=== PATIENT | female | born 1940 ===

== ENCOUNTER 2020-09-28 21:31 | Inpatient (IN) | payer MEDICARE, BC ==
[~2020-09-28] VITALS: Ht 172.7 cm; Wt 64.4 kg
--- NOTE | 2020-09-28 22:00 | NUR ---
Patient presents to ER via EMS for Medical Clearance from [facility]. Patient is able to answer questions is aware of what is going on. No cardiovascular issues at this time - HR normal - sinus rhythm. Lung sounds clear. No acute distress.
[2020-09-28] MEDS ORDERED: MELA1TAB27 PO (22:09)
[2020-09-28] MEDS ORDERED: AMLO-212 PO (22:09)
[2020-09-28] MEDS ORDERED: ESCI5TAB16 PO (22:09)
[2020-09-28] MEDS ORDERED: LEVO100T10 PO (22:09)
[2020-09-28] MEDS ORDERED: ASPI-869 PO (22:09)
[2020-09-28] MEDS ORDERED: BUSP5TAB3 PO (22:09)
[2020-09-28 22:35] LABS: BASOPHILS % (AUTO) 0.6 % (0.0-2.0); EOSINOPHILS # (AUTO) 0.2 K/uL (0.0-0.7); EOSINOPHILS % (AUTO) 2.5 % (0.0-7.0); HEMATOCRIT 38.5 % (31.2-41.9); HEMOGLOBIN 13.2 g/dL (10.9-14.3); LYMPHOCYTES % (AUTO) 23.9 % (20.5-51.5); MEAN CORPUSCULAR HEMOGLOBIN 29.8 uug (24.7-32.8); MEAN CORPUSCULAR HGB CONC 34 g/dL (32.3-35.6); MONOCYTES # (AUTO) 0.9 K/uL (2.0-10.0); MONOCYTES % (AUTO) 10.5 % (0.0-11.0); NEUTROPHILS # (AUTO) 5.2 K/uL (1.8-8.9); NEUTROPHILS % (AUTO) 62.5 % (38.5-71.5); PLATELET COUNT (AUTO) 324 K/uL (179-408); RED BLOOD CELL COUNT(AUTO) 4.42 MIL/uL (3.63-4.92); WHITE BLOOD COUNT (AUTO) 8.3 K/uL (3.8-11.8)
[2020-09-28 22:39] LABS: ALANINE AMINOTRANSFERASE 39 U/L (14-59); ALKALINE PHOSPHATASE 89 U/L (50-136); ASPARTATE AMINOTRANSFERASE 27 U/L (15-37); BILIRUBIN,DIRECT 0.1 mg/dL (0.0-0.2); BILIRUBIN,TOTAL 0.5 mg/dL (0.2-1.0); CARBON DIOXIDE 26 mmol/L (21-32); CHLORIDE 99 mmol/L (98-107); CREATININE 0.8 mg/dL (0.6-1.3); GLUCOSE 93 mg/dL (74-106); POTASSIUM 3.6 mmol/L (3.5-5.1); TOTAL PROTEIN, SERUM 6.3 g/dL (6.4-8.2); UREA NITROGEN, BLOOD 19 mg/dL (7-18)
[2020-09-28 22:47] LABS: THYROID STIMULATING HORMONE 6.891 mIU/mL (0.358-3.740)
[2020-09-28 22:48] LABS: *BILIRUBIN,URIN NEGATIVE (NEGATIVE); *CLARITY,URINE CLEAR (CLEAR); *COLOR,URINE YELLOW (YELLOW); *KETONES,URINE 1+ (NEGATIVE); *UROBILINOGEN,URINE 0.2 E.U./dl (NORMAL); LEUKOCYTE ESTERASE ,URINE NEGATIVE (NEGATIVE); NITRITE, URINE NEGATIVE (NEGATIVE); UGLUCOSE NEGATIVE (NEGATIVE)
[2020-09-28 22:55] LABS: ACETAMINOPHEN < 2.0 ug/mL (10-30); ETHANOL < 3 MG/DL (0-0)
[2020-09-28 22:56] LABS: *BLOOD, URINE TRACE (NEGATIVE)
--- NOTE | 2020-09-28 23:01 | NUR ---
Called Caprice Young RN for patient psych eval, eta @1 hour.
[2020-09-28 23:03] LABS: *AMPHETAMINE, URINE NEGATIVE (NEGATIVE); *CANNABINOID, URINE NEGATIVE (NEGATIVE); *COCCAINE, URINE NEGATIVE (NEGATIVE); *OPIATE, URINE NEGATIVE (NEGATIVE); *PHENCYCLIDINE SCREEN,URINE NEGATIVE (NEGATIVE)
[2020-09-28 23:12] LABS: BACTERIA,URINE NONE SEEN /HPF (NONE SEEN); RED BLOOD CELL CASTS,URINE 0-3 /LPF (NONE SEEN); SQUAMOUS EPITHELIAL CELL,UR FEW /HPF (NONE SEEN); WBC,URINE NONE SEEN /HPF (0-3)
[2020-09-29] MEDS ORDERED: OLANZAPINE 5 MG TABLET PO ONE
[2020-09-29] MEDS ORDERED: OLANZAPINE 5 MG TABLET ONE (00:08)
--- NOTE | 2020-09-29 01:05 | NUR ---
Patient transferred to MHU Room 137-A under the care of MICHELE Ring. All belongings with patient. Old records with patient. Pertinent information given in report.
[2020-09-29] MEDS ORDERED: TEMAZEPAM 7.5 MG CAPSULE PO PRN (01:15)
[2020-09-29] MEDS ORDERED: MAG HYDROX/AL HYDROX/SIMETH 30 ML LIQUID UDC PO PRN (01:15)
[2020-09-29] MEDS ORDERED: ACETAMINOPHEN 325 MG TABLET PO PRN (01:15)
--- NOTE | 2020-09-29 01:45 | NUR ---
GPS ADMISSION NOTED : Patient is a 80 year old female, brought in by ambulance on a 5150 from [facility]. Patient admitted on a 5150 for GD. Per hold, patient eloped from the facility and was gone for an hour. Patient has been hallucinating and unmanageable per staff. Patient has been confused and irritable. Upon face to face evaluation, patient was confused and unable to verbalize where she was or why she is at [facility]. Patient verbalized needing to leave and " Go to [place]". Dry House Worker was unable to engage patient in any meaningful conversation. Her speech was clear but disorganized. Staff reoriented patient to the reality of the situation with little effect. Patient given an Advisement and Patient rights Handbook. When asked, patient denied SI and HI. A shower was provided with assistance d/t the patient is unsteady to ambulate on her own at this time. Physical therapy ordered as well as admission orders from Dr. Ayala. Monitoring patient closely for safety and elopement. Redirection provided as needed. Belongings inventoried in front of patient and locked in safe. No behavioral issues noted at the present.
--- NOTE | 2020-09-29 05:51 | NUR ---
Patient slept 4.15 hours so far. No changes. Bed alarm on and frequent rounding done to ensure safety.
--- NOTE | 2020-09-29 06:16 | NUR ---
Patient woke up and went into the hallway trying to go in other patients rooms. When staff tried to redirect patient, she became very agitated and elevated. Gait noted to be unsteady , functional tester typewriters reoriented patient and assisted patient back in bed for now. Plan to watch closely for safety. Patient is confused and thinks she is "at home" despite reorientation.
[2020-09-29 07:30] VITALS: BP 148/73
--- NOTE | 2020-09-29 07:30 | NUR ---
received patient asleep in her bed, patient calm, cooperative, patient confused ,reoriented to her situation, patient assisted with her ADL, no sign of distress, on monitoring [id number] for safety and fall risk, seen by PT and evaluated,
[2020-09-29 08:47] LABS: BILIRUBIN,TOTAL 0.6 mg/dL (0.2-1.0); CREATININE 0.8 mg/dL (0.6-1.3); POTASSIUM 3.6 mmol/L (3.5-5.1)
--- NOTE | 2020-09-29 09:28 | NUR ---
received a phone call from patients daughter, letha, 2nd on DPOA, updated with patient status,
[2020-09-29] MEDS: busPIRone 5 MG TABLET PO SCH ×2 (14:20→16:13)
[2020-09-29 16:00] VITALS: BP 149/74
--- NOTE | 2020-09-29 18:56 | NUR ---
patient remain isolative, calm compliant with medication, assisted with ADLs, no sign of distress,
[2020-09-29] MEDS: LORAZEPAM 0.5 MG TABLET PO PRN (19:52)
[2020-09-29 20:00] VITALS: BP 149/71
--- NOTE | 2020-09-30 05:52 | NUR ---
Received patient last night , isolating herself in her room. Very anxious, and afraid of the surroundings. Fuel Conversion Technician was able to calm patient and reorient her to the situation. Patient is confused and unable to state where she is and why she is here. A PRN medication given for anxiety, per patients request. Total sleep hours were 9.00. Patient up once during the night to use the bathroom, assistance provided. Continuing to reorient patient when needed and to monitor for safety.
[2020-09-30 07:30] VITALS: BP 141/78
[2020-09-30] MEDS: AMLODIPINE 5 MG TABLET PO SCH (08:04)
[2020-09-30] MEDS: busPIRone 5 MG TABLET PO SCH ×3 (08:04→16:03)
[2020-09-30] MEDS: LEVOTHYROXINE SODIUM 100 MCG TABLET PO SCH (08:04)
[2020-09-30] MEDS: ASPIRIN EC 325 MG TABLET.DR PO SCH (08:04)
[2020-09-30] MEDS ORDERED: LEVOTHYROXINE SODIUM 100 MCG TABLET PO SCH (09:00)
[2020-09-30] MEDS: LORAZEPAM 0.5 MG TABLET PO PRN ×2 (09:30→20:05)
[2020-09-30] MEDS: SERTRALINE HCL 50 MG TABLET PO SCH (12:07)
[2020-09-30 16:00] VITALS: BP 160/78
[2020-09-30 20:03] VITALS: BP 123/70
--- NOTE | 2020-10-01 05:50 | NUR ---
Received patient at the nurses station last night. Confused and irritated saying" I missed my ride, And I need to get out of here." Manager Of Purchasing reoriented patient to the situation at which time patient became suspicious and paranoid. Patient is oriented to name only and did not believe this was a hospital. The patients anxiety level was at a high level , but she did agree to taking the medication prescribed. Total sleep hours were 7.00. Patient was up a few times during the night and was redirectable and went back to bed. Continuing to monitor for safety and provide reassurance when needed.
[2020-10-01] MEDS: LEVOTHYROXINE SODIUM 100 MCG TABLET PO SCH (06:02)
[2020-10-01 07:30] VITALS: BP 133/61
[2020-10-01] MEDS: AMLODIPINE 5 MG TABLET PO SCH (08:08)
[2020-10-01] MEDS: busPIRone 5 MG TABLET PO SCH ×3 (08:09→16:59)
[2020-10-01] MEDS: ASPIRIN EC 325 MG TABLET.DR PO SCH (08:09)
[2020-10-01] MEDS: SERTRALINE HCL 50 MG TABLET PO SCH (13:20)
[2020-10-01 15:24] VITALS: BP 138/69
--- NOTE | 2020-10-01 15:50 | NUR ---
JIN Initial Discharge Plan: Patient was currently residing at [address] [address] ([phone]). JIN spoke with patient's daughter/POA who stated that they are coordinating for the patient to be placed at [facility] [id number] [place] [id number] ([phone]). JIN will continue to work with patient, family, and MD to ensure a safe and proper discharge plan.
--- NOTE | 2020-10-01 15:50 | NUR ---
JIN Family Contact: SW spoke with patient's daughter/POA Reena ([phone]) who stated that they are coordinating [place] [address] ([phone]). Patient's daughters, Reena and Laura ([phone] both are POA and this neonatal social worker requested for documents to be emailed or faxed. JIN also discussed treatment and discharge plan with Reena.
--- NOTE | 2020-10-01 15:51 | NUR ---
JIN Facility Contact: JIN spoke with Fide ([phone]) cold rolling coordinator at [facility] regarding patient's placement there post discharge. Fide will be forwarding this child welfare social worker required documents. Will continue to keep in touch regarding patient's treatment and discharge plan.
--- NOTE | 2020-10-01 16:02 | NUR ---
Firearms Report: Costume Shop Manager completed and submitted a [employer] firearms report for 5150 grave disability certifications. A copy of report has been placed in patient chart.
--- NOTE | 2020-10-01 18:11 | NUR ---
patient is alert and oriented to name only. She is anxious, restless, fearful of staff, suspicious, and frequently wandering the unit. patient is confused and disoriented. She believes that she was brought here to wait for her daughter to bring her shoes. patient cannot comprehend education or attempts at redirection and reality orientation. patient becomes easily angry and agitated during this writer technical publications's attempts at redirection. despite constant education, patient is still confused, wanders, has poor boundaries, and is impulsive. patient is adherent with medication, no adverse reaction noted. patient able to perform self care and ADL's independently.
[2020-10-01 20:13] VITALS: BP 136/64
[2020-10-01] MEDS: LORAZEPAM 0.5 MG TABLET PO PRN (20:36)
--- NOTE | 2020-10-02 05:44 | NUR ---
Received patient wondering into the nurses station. When asked what she wanted patient did not know. This patient is alert but disoriented and confused. Attempts to redirect patient by staff continued throughout the shift. Patient slept 5.30 hours. Ditcher Operator noticed patient to be suspicious of staff and surroundings, reassurance provided. Other than confusion, no behavioral issues noted during the night.
[2020-10-02] MEDS: LEVOTHYROXINE SODIUM 100 MCG TABLET PO SCH (06:22)
[2020-10-02] MEDS: LORAZEPAM 0.5 MG TABLET PO PRN ×2 (06:53→19:54)
[2020-10-02 07:30] VITALS: BP 154/79
[2020-10-02] MEDS: ASPIRIN EC 325 MG TABLET.DR PO SCH (08:24)
[2020-10-02] MEDS: AMLODIPINE 5 MG TABLET PO SCH (08:24)
[2020-10-02] MEDS: busPIRone 5 MG TABLET PO SCH ×3 (08:25→16:38)
[2020-10-02] MEDS: SERTRALINE HCL 50 MG TABLET PO SCH (12:17)
[2020-10-02 16:00] VITALS: BP 120/75
[2020-10-02] MEDS: ENSURE ENLIVE (VAN) 240 ML LIQUID PO SCH (16:39)
--- NOTE | 2020-10-02 17:35 | NUR ---
Patient seen and examined by MD Ayala thru video call. Patient ask where she was and verbalize that she is having camping, sitting in the chair. Patient redirected with fair effect. patient continue behavioral monitoring. no agitation noted.
[2020-10-02 20:18] VITALS: BP 153/86
[2020-10-03] MEDS: LEVOTHYROXINE SODIUM 100 MCG TABLET PO SCH (06:01)
--- NOTE | 2020-10-03 06:50 | NUR ---
PT SLEPT 8.3 H. PT IN NO ACUTE DISTRESS. PT CONFUSED AND NEEDS REDIRECTION. PT STATING THAT SHE NEEDS TO FIND THE STAIRCASE TO SECOND FLOOR. ATIVAN PRN GIVEN AR 1954H. PT TOLERATED IT WELL. SAFETY AND COMFORT PROVIDED. WILL ENDORSE TO INCOMING NURSE FOR CONTINUITY OF CARE.
[2020-10-03 07:30] VITALS: BP 132/62
[2020-10-03] MEDS: AMLODIPINE 5 MG TABLET PO SCH (09:49)
[2020-10-03] MEDS: busPIRone 5 MG TABLET PO SCH ×3 (09:49→17:14)
[2020-10-03] MEDS: ASPIRIN EC 325 MG TABLET.DR PO SCH (09:49)
[2020-10-03] MEDS: ENSURE ENLIVE (VAN) 240 ML LIQUID PO SCH ×2 (09:51→17:15)
[2020-10-03] MEDS: SERTRALINE HCL 50 MG TABLET PO SCH (12:27)
[2020-10-03] MEDS: LORAZEPAM 0.5 MG TABLET PO PRN (15:06)
[2020-10-03 16:35] VITALS: BP 138/75
[2020-10-03 20:02] VITALS: BP 155/65
--- NOTE | 2020-10-03 21:11 | NUR ---
Received patient isolating herself in her room covered in her blankets. Patient is confused and unable to state where she is and why she is here. No s/s of acute distress noted. Q15 min checks in place for safety and fall risk.
[2020-10-04] MEDS: LORAZEPAM 0.5 MG TABLET PO PRN (00:43)
[2020-10-04] MEDS: LEVOTHYROXINE SODIUM 100 MCG TABLET PO SCH (06:13)
--- NOTE | 2020-10-04 06:35 | NUR ---
Patient slept 5.45 hours. Confused and anxious needed reorientation. PRN Ativan given per order. Pt tolerated well. All needs were met and attended to.
[2020-10-04 07:09] LABS: BASOPHILS # (AUTO) 0.1 K/uL (0.0-8.0); EOSINOPHILS # (AUTO) 0.3 K/uL (0.0-0.7); HEMATOCRIT 42.1 % (31.2-41.9); HEMOGLOBIN 14.2 g/dL (10.9-14.3); LYMPHOCYTES # (AUTO) 2.4 K/uL (20.0-40.0); LYMPHOCYTES % (AUTO) 35.1 % (20.5-51.5); MEAN CORPUSCULAR HEMOGLOBIN 29.6 uug (24.7-32.8); MEAN CORPUSCULAR HGB CONC 34 g/dL (32.3-35.6); MONOCYTES # (AUTO) 0.6 K/uL (2.0-10.0); NEUTROPHILS # (AUTO) 3.5 K/uL (1.8-8.9); NEUTROPHILS % (AUTO) 50.9 % (38.5-71.5); PLATELET COUNT (AUTO) 333 K/uL (179-408); RED BLOOD CELL COUNT(AUTO) 4.79 MIL/uL (3.63-4.92)
[2020-10-04 07:30] VITALS: BP 149/72
[2020-10-04 07:30] LABS: POTASSIUM 3.7 mmol/L (3.5-5.1)
[2020-10-04] MEDS: busPIRone 5 MG TABLET PO SCH ×3 (08:08→16:14)
[2020-10-04] MEDS: AMLODIPINE 5 MG TABLET PO SCH (08:08)
[2020-10-04] MEDS: ASPIRIN EC 325 MG TABLET.DR PO SCH (08:08)
[2020-10-04] MEDS: ENSURE ENLIVE (VAN) 240 ML LIQUID PO SCH ×2 (08:09→17:00)
[2020-10-04] MEDS: SERTRALINE HCL 50 MG TABLET PO SCH (12:26)
--- NOTE | 2020-10-04 12:54 | NUR ---
JIN Individual Therapy Note: SW met with patient today and provided brief individual counseling to address patient's presenting problem of disorganized thought process. Patient presents confused and disoriented. Patent rambles about unrelated things and requires constant redirection. Patient is a poor historian and has poor insight into her presenting problems. SW will remain available for patient for continued supportive counseling.
--- NOTE | 2020-10-04 15:37 | NUR ---
JIN PC Hearing: Patient had 5250 probable cause hearing today and it was upheld for grave disability.
[2020-10-04 16:00] VITALS: BP_SYST 128; BP_SYST 130; BP_DIAS 62; BP_DIAS 70
--- NOTE | 2020-10-04 19:40 | NUR ---
PATIENT REMAINS COOPERATIVE WITH TREATMENT PLAN. COMPLIENT WITH MEDICATIONS. NO IM GIVEN SAFETY PRECAUTIONS IN PLACE. WILL REPORT TO NIGHT NURSE.
[2020-10-04 20:17] VITALS: BP 151/76
[2020-10-05] MEDS: LEVOTHYROXINE SODIUM 100 MCG TABLET PO SCH (06:17)
--- NOTE | 2020-10-05 06:45 | NUR ---
GPS: Remain confused and disoriented,needed reorientation. pacing at time. Patient slept 5 hours. compliant with am po meds. All needs were met and attended to. resting in bed comfortably.
[2020-10-05 07:30] VITALS: BP 144/76
[2020-10-05] MEDS: busPIRone 5 MG TABLET PO SCH ×2 (10:00→17:39)
[2020-10-05] MEDS: ASPIRIN EC 325 MG TABLET.DR PO SCH (10:01)
[2020-10-05] MEDS: ENSURE ENLIVE (VAN) 240 ML LIQUID PO SCH ×2 (10:01→17:39)
[2020-10-05] MEDS: AMLODIPINE 5 MG TABLET PO SCH (10:01)
[2020-10-05] MEDS: SERTRALINE HCL 50 MG TABLET PO SCH (13:22)
[2020-10-05 15:31] VITALS: BP 155/72
[2020-10-05 20:24] VITALS: BP 119/67
[2020-10-05] MEDS: QUETIAPINE FUMARATE 25 MG TABLET PO SCH (21:04)
--- NOTE | 2020-10-06 05:54 | NUR ---
Shift End Report:Slept good =7.30 hours. No complaint presented all night. No agitation, no hallucination but still some confusion noted. No significant event reported all night. Continue current plan of care,.
[2020-10-06] MEDS: LEVOTHYROXINE SODIUM 100 MCG TABLET PO SCH (06:21)
[2020-10-06 07:30] VITALS: BP 129/53
[2020-10-06] MEDS: ASPIRIN EC 325 MG TABLET.DR PO SCH (08:41)
[2020-10-06] MEDS: busPIRone 5 MG TABLET PO SCH ×2 (08:41→16:53)
[2020-10-06] MEDS: AMLODIPINE 5 MG TABLET PO SCH (08:42)
--- NOTE | 2020-10-06 09:00 | NUR ---
ALERT BUT WITH CONFUSSION AND DISORIENTATION STATED THAT SHE IS AFRAID THAT SHE WILL BE KICKED OUT OF THIS HOSPITAL AND SHE HAS NO PLACE TO GO REASSURED HER THAT WHEN SHE IS DISCHARGED IT WILL BE A SAFE PLACE STATED FELT RELIEVED AT THIS TIME
[2020-10-06] MEDS: ENSURE ENLIVE (VAN) 240 ML LIQUID PO SCH ×2 (09:08→16:53)
[2020-10-06] MEDS: SERTRALINE HCL 50 MG TABLET PO SCH (12:28)
--- NOTE | 2020-10-06 15:25 | NUR ---
REMAIN CONFUSED UNABLE TO KEEP THOUGHTS ON SAME CONVERSATION SEEMS TO BE UNABLE TO CONCENTRATE ON WHAT EVER DISCUSSION AT HAND NEEDED TO BE REASSURED WILL CONTINUE TO OBSERVE AND PROVIDE SAFE AND THERAPEUTIC ENVIRONMENT AT ALL TIMES.
[2020-10-06 16:00] VITALS: BP 123/69
--- NOTE | 2020-10-06 18:00 | NUR ---
COMPLIANT MEDICATIONS AND COOPERATIVE VERBALLY RESPONDING WHEN SPOKE TO WAS CONVERSING WITH HER FAMILY MEMEBER ON THE PHONE FOR A WHILE AND WAS SHOWING OFF HER DRAWING IN HER BOOK SEEMS TO BE IN A GOOD MOOD WILL CONTINUE TO PROVIDE SAFE AND THERAPEUTIC ENVIRONMENT AT ALL TIMES. Addendum: 10/06/20 at 1824 by JOHAN MANCINI RN ERROR WRONG PATIENT.
[2020-10-06 20:26] VITALS: BP 127/57
[2020-10-06] MEDS: LORAZEPAM 0.5 MG TABLET PO PRN (20:47)
[2020-10-06] MEDS: QUETIAPINE FUMARATE 25 MG TABLET PO SCH (20:47)
--- NOTE | 2020-10-07 05:57 | NUR ---
Patient remains very disoriented and requires frequent redirection and explanation of the situation. Patient wonders room to room and is lost. Jewelry Sorter noticed patient was anxious and provided reassurance when needed , plus a PRN medication which patient tolerated well. Total sleep hours were 7.45. Patient up early this am and having a shower with assistance. Continuing to monitor for safety.
[2020-10-07] MEDS: LEVOTHYROXINE SODIUM 100 MCG TABLET PO SCH (06:28)
[2020-10-07 07:30] VITALS: BP 128/55
[2020-10-07] MEDS: busPIRone 5 MG TABLET PO SCH ×2 (08:37→16:40)
[2020-10-07] MEDS: ASPIRIN EC 325 MG TABLET.DR PO SCH (08:37)
[2020-10-07] MEDS: AMLODIPINE 5 MG TABLET PO SCH (08:38)
[2020-10-07] MEDS: ENSURE ENLIVE (VAN) 240 ML LIQUID PO SCH ×2 (09:00→16:41)
[2020-10-07] MEDS: SERTRALINE HCL 50 MG TABLET PO SCH (12:13)
[2020-10-07 15:25] VITALS: BP 127/74
--- NOTE | 2020-10-07 17:30 | NUR ---
PATIENT IS ALERT TO SELF BUT REMAIN CONFUSED AND DISORIENTED BUT PLEASANT COMPLIANT WITH MEDICATIONS AND CARE AMBULATORY IN THE HALLWAY ENCOURAGED TO ENGAGE WITH OTHER PATIENTS WILL CONTINUE TO OBSERVE AND PROVIDE SAFE AND THERAPEUTIC ENVIRONMENT AT ALL TIMES.
[2020-10-07 20:19] VITALS: BP 126/70
[2020-10-07] MEDS: LORAZEPAM 0.5 MG TABLET PO PRN (20:44)
[2020-10-07] MEDS: QUETIAPINE FUMARATE 25 MG TABLET PO SCH (20:44)
--- NOTE | 2020-10-08 05:50 | NUR ---
Patient slept for a total of 6.30 hours last night. Patient needed PRN medications early in the shift due to patient being very anxious and "frightened." Continual reorientation to the situation provided. Due to the fact that this patient has advanced memory loss, this is required. Patient found wandering around the unit unable to find her room. She had delusions such as police officers in her room stealing her belongings. Eventually, patient calmed down and was able to sleep. Monitoring this patient for safety and anxiety.
[2020-10-08] MEDS: LEVOTHYROXINE SODIUM 100 MCG TABLET PO SCH (06:12)
[2020-10-08 07:30] VITALS: BP 110/51
[2020-10-08] MEDS: ENSURE ENLIVE (VAN) 240 ML LIQUID PO SCH ×2 (08:11→18:12)
[2020-10-08] MEDS: AMLODIPINE 5 MG TABLET PO SCH (08:11)
[2020-10-08] MEDS: ASPIRIN EC 325 MG TABLET.DR PO SCH (08:12)
[2020-10-08] MEDS: busPIRone 5 MG TABLET PO SCH ×2 (08:12→16:37)
--- NOTE | 2020-10-08 09:37 | NUR ---
patient alert and oriented to person only. she requires reality orientation to reason for admission, date, and time. she is cooperative, redirectable, but is anxious, guarded, and withdrawn to her room. patient denies SI/HI, denies AH/VH. patient is adherent with medication, no adverse reaction noted. patient apepars dressed approrpiately in her own clothing. patient encouraged to participate in the unit milieu. patient able to perform self care and ADL's independently. provided with education about impulse control and safety.
--- NOTE | 2020-10-08 11:55 | NUR ---
JIN Family Contact/ Coordination of Care: JIN spoke with patient's daughter/POA Reena ([phone]) who stated that they are coordinating for the patient to be placed at [facility] [address], [place] [address] . Reena stated she plans on flying out here and taking the patient back with [facility]. JIN spoke with Maura Nurse from [facility] and provided patient's information.
[2020-10-08] MEDS: SERTRALINE HCL 50 MG TABLET PO SCH (12:24)
[2020-10-08 15:22] VITALS: BP 126/74
--- NOTE | 2020-10-08 16:10 | NUR ---
JIN Individual Therapy Note: SW met with patient today and provided brief individual counseling to address patient's presenting problem of disorganized thought process. Patient presents confused and disorganized. Patient is a poor historian and has poor insight into her presenting problems. SW will remain available for patient for continued supportive counseling.
[2020-10-08 20:18] VITALS: BP 120/67
[2020-10-08] MEDS ORDERED: QUETIAPINE FUMARATE 25 MG TABLET PO SCH (21:00)
[2020-10-09] MEDS: LEVOTHYROXINE SODIUM 100 MCG TABLET PO SCH (06:14)
[2020-10-09 08:24] VITALS: BP 139/76
[2020-10-09] MEDS: busPIRone 5 MG TABLET PO SCH ×2 (09:20→17:13)
[2020-10-09] MEDS: ASPIRIN EC 325 MG TABLET.DR PO SCH (09:20)
[2020-10-09] MEDS: AMLODIPINE 5 MG TABLET PO SCH (09:21)
[2020-10-09] MEDS: ENSURE ENLIVE (VAN) 240 ML LIQUID PO SCH ×2 (09:21→17:15)
--- NOTE | 2020-10-09 09:23 | NUR ---
JIN Coordination of Care: JIN spoke with Maura Pantoja from [address], [place] [address] ([phone]) who requested patient clinicals to review. JIN faxed patient's clinicals (fax: [phone]).
--- NOTE | 2020-10-09 09:53 | NUR ---
Received pt in assigned room in bed, alert to self and location, required reality orientation for situation, length of admission, and reason for admission. Pt noted forgetful and anxious. Reassurance and redirection provided, encouraged pt to express feelings. Pt tolerated breakfast and fluids well. Pt adherent with prescribed medications, no a/r noted. Pt denies SI/HI/AH/VH. Pt able to verbally CFS. Pt able to ambulate safely and perform self care. Safe environment ensured. Will continue to monitor.
[2020-10-09] MEDS: SERTRALINE HCL 50 MG TABLET PO SCH (12:43)
--- NOTE | 2020-10-09 14:47 | NUR ---
UR NOTE: Per Intake, JIN faxed patient's updated clinicals to the following (FAX [phone]): Tristen Tipton [phone] Ext [phone] Karoline Chapin Hearing Impaired Teacher [phone] ext [phone] Addendum: 10/09/20 at 1449 by RUBINA HERNANDEZ DISREGARD NOTE, INCORRECT PATIENT!
--- NOTE | 2020-10-09 14:53 | NUR ---
JIN Family Contact: JIN spoke with patient's daughter/EYAL Valles ([phone]) who requested a note from the psychiatrist Dr. Ayala regarding patient's inability to make medical or financial decisions at this time including her current diagnosis. JIN provided the letter signed by Dr. Ayala and a copy of the letter has been placed in the patient's chart. This letter was needed in order to be able to pay for the patient's assisted living facility.
[2020-10-09 16:00] VITALS: BP 133/77
--- NOTE | 2020-10-09 18:53 | NUR ---
EOSS: Pt in assigned room, awake, anxious. Pt required frequent redirection and reorientation to situation and condition. Reassurance and redirection provided PRN. Due medications given per order, no a/r noted. VSS. Pt able to ambulate safely and provide self care. Safe environment and fall precautions maintained. Will endorse care to cnc machinist 2nd shift nurse.
[2020-10-09] MEDS: QUETIAPINE FUMARATE 25 MG TABLET PO SCH (20:03)
[2020-10-09 20:12] VITALS: BP 167/80
[2020-10-10] MEDS: LEVOTHYROXINE SODIUM 100 MCG TABLET PO SCH (06:12)
[2020-10-10 07:30] VITALS: BP 130/79
[2020-10-10] MEDS: ASPIRIN EC 325 MG TABLET.DR PO SCH (08:23)
[2020-10-10] MEDS: busPIRone 5 MG TABLET PO SCH ×2 (08:23→16:20)
[2020-10-10] MEDS: AMLODIPINE 5 MG TABLET PO SCH (08:24)
[2020-10-10] MEDS: ENSURE ENLIVE (VAN) 240 ML LIQUID PO SCH ×2 (08:28→16:20)
[2020-10-10] MEDS: SERTRALINE HCL 50 MG TABLET PO SCH (12:05)
[2020-10-10] MEDS: LORAZEPAM 0.5 MG TABLET PO PRN (13:35)
--- NOTE | 2020-10-10 13:54 | NUR ---
JIN Coordination of Care: JIN spoke with patient's daughter/EYAL Valles ([phone]) who stated that they have changed the plans for the assisted living facility. They are now coordinating for patient to go to [address], [place] [address] ([phone]). JIN spoke with Layne admin coordinator at the facility ([phone] fax: [phone]) who requested patient's clinicals. JIN faxed patient's clinicals attention to Layne for review. Layne also requested for a video assessment tomorrow at 9:30am which JIN will conduct for patient's evaluation.
--- NOTE | 2020-10-10 14:08 | NUR ---
JIN SNF Referral: JIN faxed patient's referral packet to [facility] [address] [place] [address] ([phone]) ) as a back up for SNF placement attention to Marva transfer coordinator. Addendum: 10/11/20 at 1017 by RUBINA HERNANDEZ Patient is accepted at facility.
[2020-10-10 16:00] VITALS: BP 126/76
[2020-10-10] MEDS: QUETIAPINE FUMARATE 25 MG TABLET PO SCH (20:11)
[2020-10-10 20:14] VITALS: BP 126/76
[2020-10-11] MEDS: LEVOTHYROXINE SODIUM 100 MCG TABLET PO SCH (06:08)
[2020-10-11 07:30] VITALS: BP 127/81
[2020-10-11] MEDS: ASPIRIN EC 325 MG TABLET.DR PO SCH (08:18)
[2020-10-11] MEDS: AMLODIPINE 5 MG TABLET PO SCH (08:18)
[2020-10-11] MEDS: ENSURE ENLIVE (VAN) 240 ML LIQUID PO SCH ×2 (08:18→16:38)
[2020-10-11] MEDS: busPIRone 5 MG TABLET PO SCH ×2 (08:18→16:38)
--- NOTE | 2020-10-11 10:18 | NUR ---
JIN Coordination of Care: JIN facilitated a video assessment between patient and Xiomy Chemist Intern and Tawny RN at [facility] ([phone]). Xiomy stated that Layne from the [employer] department will contact this social services assistant soon to discuss placement.
[2020-10-11] MEDS: SERTRALINE HCL 50 MG TABLET PO SCH (12:45)
--- NOTE | 2020-10-11 14:15 | NUR ---
JIN Family Contact: SW spoke with patient's daughter/EYAL Conti ([phone]) and discussed updated treatment and discharge plan.
--- NOTE | 2020-10-11 15:37 | NUR ---
JIN Family Contact: JIN spoke with patient's daughter/EYAL Valles ([phone]) and confirmed patient's placement to [facility]. Reena stated that she is flying in from [place] on Thursday10/13/20 and will be packing up the patient's belongings from her home. Reena stated she will pickle water pump operator the patient from the hospital on Thursday at 4PM and will be driving straight to the airport and upon their arrival to [place] she will be transporting the patient to the Assisted Living Facility. Addendum: 10/12/20 at 1032 by URBINA HERNANDEZ JIN also had discussed possible SNF placement for the patient prior to Assisted Living Facility however Reena refused.
--- NOTE | 2020-10-11 15:38 | NUR ---
JIN Individual Therapy Note: SW met with patient today and provided brief individual counseling to address patient's presenting problem of disorganized thought process. Patient presents with withdrawn mood and flat affect. Patient presents more alert and oriented towards her presenting problems. SW discussed discharge planning with the patient. SW will remain available for patient for continued supportive counseling.
--- NOTE | 2020-10-11 16:00 | NUR ---
Gps/Head Grease Maker- Had been in and out of her room, making her simple needs known to the staff. Quiet ,gets disoriented, claimed she does not know her roommate is registered in her room., no interaction with her roommate.
[2020-10-11 16:49] VITALS: BP 129/64
[2020-10-11 20:00] VITALS: BP 133/70
[2020-10-11] MEDS: QUETIAPINE FUMARATE 25 MG TABLET PO SCH (20:46)
[2020-10-12] MEDS: LEVOTHYROXINE SODIUM 100 MCG TABLET PO SCH (06:06)
--- NOTE | 2020-10-12 06:44 | NUR ---
PT SLEPT 8 H. PT IN NO ACUTE DISTRESS. PRESCRIBED MEDICATION GIVEN AND PT TOLERATED IT WELL. SAFETY AND COMFORT PROVIDED. ALL NEEDS ARE MET. WILL ENSORSE TO INCOMING NURSE FOR CONTINUITY OF CARE.
[2020-10-12 07:30] VITALS: BP 144/72
[2020-10-12] MEDS: ASPIRIN EC 325 MG TABLET.DR PO SCH (08:25)
[2020-10-12] MEDS: busPIRone 5 MG TABLET PO SCH ×2 (08:25→18:36)
[2020-10-12] MEDS: AMLODIPINE 5 MG TABLET PO SCH (08:25)
[2020-10-12] MEDS: ENSURE ENLIVE (VAN) 240 ML LIQUID PO SCH ×2 (08:25→17:00)
--- NOTE | 2020-10-12 10:28 | NUR ---
JIN Facility Contact: JIN spoke with Layne admin coordinator at the facility ([phone] fax: [phone]) who requested physician move in order filled out and signed. JIN faxed requested documents to Layne.
[2020-10-12] MEDS: QUETIAPINE FUMARATE 25 MG TABLET PO SCH ×2 (11:36→20:15)
[2020-10-12] MEDS: SERTRALINE HCL 50 MG TABLET PO SCH (12:34)
[2020-10-12 15:28] VITALS: BP 113/48
[2020-10-12 20:57] VITALS: BP 136/80
--- NOTE | 2020-10-12 22:04 | NUR ---
Received pt resting in bed and talking to her roommate. AAO x2. No acute distress noted. Denies SI. Pt is compliant with care. Due med given as ordered. Safety measures maintained. Will continue to monitor.
[2020-10-13] MEDS: LEVOTHYROXINE SODIUM 100 MCG TABLET PO SCH (06:04)
[2020-10-13 07:30] VITALS: BP 139/79
[2020-10-13] MEDS: QUETIAPINE FUMARATE 25 MG TABLET PO SCH ×2 (08:42→20:22)
[2020-10-13] MEDS: busPIRone 5 MG TABLET PO SCH ×2 (08:42→16:53)
[2020-10-13] MEDS: ASPIRIN EC 325 MG TABLET.DR PO SCH (08:42)
[2020-10-13] MEDS: AMLODIPINE 5 MG TABLET PO SCH (08:43)
[2020-10-13] MEDS: ENSURE ENLIVE (VAN) 240 ML LIQUID PO SCH ×2 (08:44→16:54)
[2020-10-13] MEDS: SERTRALINE HCL 50 MG TABLET PO SCH (12:27)
[2020-10-13 16:00] VITALS: BP 146/68
[2020-10-13 20:00] VITALS: BP 140/79
[2020-10-13] MEDS: LORAZEPAM 0.5 MG TABLET PO PRN (20:22)
[2020-10-14] MEDS: LEVOTHYROXINE SODIUM 100 MCG TABLET PO SCH (05:59)
[2020-10-14 07:30] VITALS: BP 140/79
[2020-10-14] MEDS: QUETIAPINE FUMARATE 25 MG TABLET PO SCH ×2 (08:39→20:22)
[2020-10-14] MEDS: busPIRone 5 MG TABLET PO SCH ×2 (08:39→17:20)
[2020-10-14] MEDS: ASPIRIN EC 325 MG TABLET.DR PO SCH (08:39)
[2020-10-14] MEDS: ENSURE ENLIVE (VAN) 240 ML LIQUID PO SCH ×2 (08:40→17:21)
[2020-10-14] MEDS: AMLODIPINE 5 MG TABLET PO SCH (08:40)
[2020-10-14] MEDS: SERTRALINE HCL 50 MG TABLET PO SCH (12:21)
[2020-10-14 16:00] VITALS: BP 119/60
[2020-10-14 20:17] VITALS: BP 137/79
[2020-10-14] MEDS: LORAZEPAM 0.5 MG TABLET PO PRN (20:22)
[2020-10-15] MEDS: LEVOTHYROXINE SODIUM 100 MCG TABLET PO SCH (06:27)
[2020-10-15 07:30] VITALS: BP 134/73
--- NOTE | 2020-10-15 08:43 | NUR ---
Discharge Note: Patient will be discharge to [address], [place] [address] ([phone]). Patients daughter, Reena ([phone]) will be providing transportation for the patient today at 4PM from the hospital to the airport and assisting her with their destination being [facility]. Patients daughter/POA: Reena ([phone]) and Laura ([phone]) are both aware and agreeable with discharge plan. Patient presents alert and oriented x3 and is aware and agreeable with discharge plan. Patient denies suicidal or homicidal ideation. Patient presents with euthymic mood and congruent affect. Patient will be following up at [facility] with primary care physician Dr. Vickers and psychiatrist Dr. Smallwood.
[2020-10-15] MEDS: AMLODIPINE 5 MG TABLET PO SCH (08:55)
[2020-10-15] MEDS: busPIRone 5 MG TABLET PO SCH (08:55)
[2020-10-15] MEDS: ASPIRIN EC 325 MG TABLET.DR PO SCH (08:55)
[2020-10-15] MEDS: ENSURE ENLIVE (VAN) 240 ML LIQUID PO SCH (08:56)
[2020-10-15] MEDS: QUETIAPINE FUMARATE 25 MG TABLET PO SCH (08:56)
[2020-10-15 11:16] LABS: BASOPHILS # (AUTO) 0.1 K/uL (0.0-8.0); BASOPHILS % (AUTO) 0.7 % (0.0-2.0); EOSINOPHILS # (AUTO) 0.1 K/uL (0.0-0.7); HEMATOCRIT 44.3 % (31.2-41.9); HEMOGLOBIN 14.7 g/dL (10.9-14.3); LYMPHOCYTES # (AUTO) 1.9 K/uL (20.0-40.0); LYMPHOCYTES % (AUTO) 26.5 % (20.5-51.5); MEAN CORPUSCULAR HEMOGLOBIN 29.3 uug (24.7-32.8); MEAN CORPUSCULAR HGB CONC 33 g/dL (32.3-35.6); MEAN CORPUSCULAR VOLUME 88.6 fL (75.5-95.3); MONOCYTES # (AUTO) 0.6 K/uL (2.0-10.0); MONOCYTES % (AUTO) 8.6 % (0.0-11.0); NEUTROPHILS # (AUTO) 4.4 K/uL (1.8-8.9); NEUTROPHILS % (AUTO) 62.2 % (38.5-71.5); PLATELET COUNT (AUTO) 354 K/uL (179-408); WHITE BLOOD COUNT (AUTO) 7.1 K/uL (3.8-11.8)
--- NOTE | 2020-10-15 11:31 | NUR ---
Called in for discharge prescription for to [facility] @ [phone] .
[2020-10-15 11:34] LABS: BILIRUBIN,TOTAL 0.4 mg/dL (0.2-1.0); CREATININE 0.9 mg/dL (0.6-1.3); POTASSIUM 3.7 mmol/L (3.5-5.1); TOTAL PROTEIN, SERUM 6.6 g/dL (6.4-8.2)
[2020-10-15] MEDS: SERTRALINE HCL 50 MG TABLET PO SCH (13:21)
[2020-10-15 15:08] VITALS: BP 121/71
--- NOTE | 2020-10-15 16:00 | NUR ---
GPS: Nursing Notes: Discharge Notes: Patient is awake and responding to her name, compliant with her medications, cooperative with nursing care, following staff directions, forgetful at times, denies SI/HI, denies AH/VH, denies pain or discomfort, denies SOB. Patient discharge to [facility] at [address] [place] [address], [place] [address] , report given to Ailyn Garza, charge nurse. Patient's daughter/DPOA - Reena picked up the patient to take her to the facility, prescription faxed to facility . Patient's daughter - Reena informed by staff that Dr. Ayala ordered patient's medication at [facility] pharmacy and she needs to turkey picker medications, patient took all her belongings with her, prescription and instructions given to patient's daughter -Reena. Patient will be following up at [facility] with primary care physician Dr. Vickers and psychiatrist Dr. Smallwood.
== END 2020-10-15 16:00 | DRG 885 ==
LOC: ER 21:31 → GPS 09-29 00:47
PROVIDERS: ADMIT Psychiatry & Neurology Psychosomatic Medicine; ATTEND Internal Medicine
DX: F33.1 Major depressive disorder, recurrent, moderate (principal); F01.50 Vascular dementia, unspecified severity, without behavioral disturbance, psychotic disturbance, mood disturbance, and anxiety; G93.40 Encephalopathy, unspecified; E03.9 Hypothyroidism, unspecified; F41.9 Anxiety disorder, unspecified; I10 Essential (primary) hypertension; K44.9 Diaphragmatic hernia without obstruction or gangrene; Z79.82 Long term (current) use of aspirin; Z73.6 Limitation of activities due to disability; F29 Unspecified psychosis not due to a substance or known physiological condition; Z20.822 Contact with and (suspected) exposure to COVID-19
CPT/HCPCS: 36415; 71045; 84443; 85025; 86480; 93005; A4663; C1758; G0480; U0003